=== PATIENT | male | born 1940 | race Hispanic/Latino ===

== ENCOUNTER 2018-10-29 11:42 | Emergency (ER) | payer MEDICARE ==
[2018-10-29 11:55] VITALS: BP 122/73
--- NOTE | 2018-10-29 13:02 | Emergency Department Report ---
ED Fall HPI - General Chief Complaint: Fall Stated Complaint: INJURED BACK/FALL Time Seen by Provider: 10/29/18 12:54 Source: patient, family Mode of arrival: Ambulatory - History of Present Illness Initial Comments: Patient is 78 years old male with no significant past medical history. Patient presented to the ER stating that he was unloading pallets using strap and came loose and he fell back on his buttock. Patient denied any loss of consciousness or head injury. Patient is complaining of lower back pain and right buttocks pain. He denied any other injuries. Patient specifically denied neck injury or neck pain, no chest pain or chest injury and no abdominal pain. MD Complaint: fall -: This morning - Related Data Allergies Allergy/AdvReac Type Severity Reaction Status Date / Time No Known Allergies Allergy Unverified 10/29/18 11:44 ED Review of Systems ROS: Stated complaint: INJURED BACK/FALL Other details as noted in HPI Comment: All other systems reviewed and negative Constitutional: denies: chills, fever Respiratory: denies: cough, shortness of breath, SOB with exertion, SOB at rest, wheezing Cardiovascular: denies: chest pain, palpitations Gastrointestinal: denies: abdominal pain, nausea, vomiting, diarrhea, constipation, hematemesis, melena, hematochezia Musculoskeletal: back pain Neurological: denies: headache, weakness, numbness, paresthesias, confusion, abnormal gait ED Past Medical Hx - Past Medical History Previous Medical History?: No - Surgical History Past Surgical History?: Yes Additional Surgical History: left knee replacement - Social History Smoking Status: Never Smoker Substance Use Type: None ED Physical Exam - General Limitations: No Limitations General appearance: alert, in no apparent distress - Head Head exam: Present: atraumatic, normocephalic, normal inspection - Eye Eye exam: Present: normal appearance, PERRL - ENT ENT exam: Present: normal exam, normal orophraynx, mucous membranes moist - Neck Neck exam: Present: normal inspection, full ROM. Absent: tenderness, meningismus, lymphadenopathy, thyromegaly - Respiratory Respiratory exam: Present: normal lung sounds bilaterally. Absent: respiratory distress, wheezes, rales, rhonchi, stridor, chest wall tenderness, accessory muscle use, decreased breath sounds, prolonged expiratory - Cardiovascular Cardiovascular Exam: Present: regular rate, normal rhythm, normal heart sounds - GI/Abdominal GI/Abdominal exam: Present: soft, normal bowel sounds. Absent: distended, tenderness, guarding, rebound, rigid, organomegaly, mass, bruit, pulsatile mass, hernia - Extremities Exam Extremities exam: Present: normal inspection, full ROM, normal capillary refill. Absent: pedal edema, joint swelling, calf tenderness - Back Exam Back exam: Present: normal inspection, full ROM. Absent: CVA tenderness (R), CVA tenderness (L), muscle spasm, paraspinal tenderness, vertebral tenderness - Neurological Exam Neurological exam: Present: alert, oriented X3, CN II-XII intact, normal gait, reflexes normal. Absent: abnormal gait, motor sensory deficit - Psychiatric Psychiatric exam: Present: normal mood - Skin Skin exam: Present: warm, intact, normal color ED Course Vital Signs 10/29/18 11:52 Temperature 98.3 F Pulse Rate 96 H Respiratory 20 Rate Blood Pressure 122/73 O2 Sat by Pulse 95 Oximetry ED Medical Decision Making - Radiology Data Radiology results: image reviewed - Medical Decision Making Patient is 78 years old male with no significant past medical history. Patient presented to the ER stating that he was unloading pallets using strap and came loose and he fell back on his buttock. Patient denied any loss of consciousness or head injury. Patient is complaining of lower back pain and right buttocks pain. He denied any other injuries. Patient specifically denied neck injury or neck pain, no chest pain or chest injury and no abdominal pain X-ray of the lumbar spine and x-ray of the pelvis is negative for acute finding. Patient remained stable in the ER. Patient discharged home in stable condition and advised to follow-up with his primary care physician in the next 2-3 days and to return to the ER if he developed any new symptoms. Critical care attestation.: If time is entered above; I have spent that time in minutes in the direct care of this critically ill patient, excluding procedure time. ED Disposition Clinical Impression: Fall, Back pain Disposition: - TO HOME OR SELFCARE Is pt being admited?: No Condition: Stable Instructions: Fall Prevention (ED), Low Back Strain (ED) Referrals: PRIMARY CARE, [Referring] - 3-5 Days
--- NOTE | 2018-10-29 14:51 | XRay Report ---
Lumbosacral spine, 2 views INDICATION: BACK INJURY. COMPARISON: None. IMPRESSION: Osteopenia is evident. There is moderate multilevel degenerative disc disease and facet arthropathy. No acute osseous or soft tissue abnormality. Pelvis, AP view INDICATION: BACK INJURY. COMPARISON: None. IMPRESSION: Osteopenia is evident. Subtle nondisplaced deformity of the right inferior pelvic ramus is suspected consistent with a fracture. The remaining pelvic bones are intact. No diastasis or bony lesion. Bilateral hips are anatomic. Multiple surgical clips are noted in both sides of the pelvis, correlate with history. Signer Name: Carlton Harrison Jr, MD Signed: 10/29/2018 2:46 PM Workstation Name: [id number]
== END 2018-10-29 14:57 | disposition home or self-care (01) ==
LOC: ED 11:42
DX: M54.5 Low back pain (principal); R10.2 Pelvic and perineal pain; Z96.652 Presence of left artificial knee joint; W01.198A Fall on same level from slipping, tripping and stumbling with subsequent striking against other object, initial encounter; Y93.89 Activity, other specified; Y92.89 Other specified places as the place of occurrence of the external cause; Y99.8 Other external cause status
CPT/HCPCS: 72100; 72170; 99283